=== PATIENT | female | born 1985 | race Caucasian/White ===

== ENCOUNTER 2020-12-05 23:19 | Emergency (ER) | payer OTHER ==
[~2020-12-05] VITALS: Ht 157.5 cm; Wt 72.6 kg
[~2020-12-05 23:19] MED LIST: BUPRENORPHINE HC8 MG SL; COLACE 100MG C100 MG PO; SUBUTEX 8 MG TAB8 MG SL
[2020-12-06 00:51] LABS: HEMOGLOBIN 13.5 gm/dl (12.3-15.3); RED BLOOD COUNT 4.43 M/UL (4.00-5.10); WHITE BLOOD COUNT 7.2 K/UL (4.5-11.0)
[2020-12-06 01:00] LABS: BUN/CREATININE RATIO 13 (0-10)
[2020-12-06] MEDS ORDERED: VENTOLIN HFA 66.7 GM INH (04:43)
[2020-12-06] MEDS ORDERED: DECADRON6 MG PO (04:43)
[2020-12-06] MEDS ORDERED: LODINE CAP 300300 MG PO (04:43)
[2020-12-06] MEDS ORDERED: TESSALON PERLE100 MG PO (05:32)
[2020-12-06] MEDS ORDERED: ZOFRAN ODT 4 MG4 MG PO (05:32)
== END 2020-12-06 06:11 | disposition home or self-care (01) ==
LOC: ER1 23:19
PROVIDERS: Physician Assistant
DX: Z23 Encounter for immunization (principal); U07.1 COVID-19; Z90.89 Acquired absence of other organs; Z91.041 Radiographic dye allergy status
CPT/HCPCS: 71045; 80053; 84703; 85025; 93005; 96374; 99285; J2405; M0243